=== PATIENT | female | born 1945 | race Hispanic/Latino ===

== ENCOUNTER 2017-11-17 18:07 | Inpatient (IN) | payer MEDICARE ==
[2017-11-17] MEDS ORDERED: NACL 0.9% 250ML 250 ML IV ONE (20:27)
--- NOTE | 2017-11-17 20:28 | Emergency Department Report ---
ED Shortness of Breath HPI - General Chief Complaint: Dyspnea/Respdistress Stated Complaint: BREATHING DIFFICULTY, TACH Time Seen by Provider: 11/17/17 20:12 Source: patient, RN notes reviewed, old records reviewed Mode of arrival: Wheelchair Limitations: No Limitations - History of Present Illness Initial Comments: This is a 72-year-old female, and the patient is previously unknown to me. Primary care Dr.: Dr Blackwell Cardiology: Dr. Albino Zuniga Pulmonology: Dr. Sobeida Garcia; [phone] Past medical history includes rheumatoid arthritis, chronic lung disease, suspected secondary to rheumatoid arthritis, high cholesterol, supposed to be home oxygen dependent, patient reports that she is poorly compliant with her home oxygen this is a 72-year-old female, the patient is previously unknown to this provider, she presents to the ER with a complaint of painless shortness of breath. It has been present for 2-3 months. It does not radiate anywhere, it worsens with physical exertion, and it decreases with rest. There is no chest pain, there is no abdominal pain, there is no hematemesis or bright red blood per rectum, the patient denies irritative, obstructive urinary symptoms, she has chronic cough which is not a new, worsening or different, she is not wheezing. Her primary care [facility] in for further evaluation. She has no pulmonary embolus or DVT risk factors by history, denies leg pain, leg swelling, recent hospital admissions, recent hospitalizations, or surgeries. She reports chronic two-pillow orthopnea which is not a new, worsening or different. MD Complaint: shortness of breath -: Gradual, month(s) Severity: moderate Consistency: intermittent Improves With: oxygen, rest Worsens With: lying flat, exertion Known History Of: COPD, other Treatments Prior to Arrival: oxygen - Related Data Home Oxygen Therapy: Yes Home Oxygen Amount: 2 Liters Home Medications Medication Instructions Recorded Confirmed Last Taken Amlodipine Besylate/Benazepril 42 mg PO QAM 08/07/15 11/17/17 11/17/17 [amLODIPine-Benazepril 10/40 mg] AtorvaSTATin [Lipitor] 40 mg PO QDAY 08/07/15 11/17/17 11/17/17 Levothyroxine [Synthroid] 112 mcg PO QAM 08/07/15 11/17/17 11/17/17 Methotrexate Sodium/Pf 25 mg PO 1XW 08/07/15 11/17/17 11/17/17 [Methotrexate 50 mg/2 ml Vial] Prednisone [predniSONE] 5 mg PO QDAY 08/07/15 11/17/17 11/17/17 ALBUTEROL Inhaler [Proair] 2 puff IH QID PRN 11/17/17 11/17/17 11/17/17 Benazepril HCl 40 mg PO DAILY 11/17/17 11/17/17 11/17/17 Betamethasone Dipropionate 1 applicatio TP BID 11/17/17 11/17/17 11/17/17 [Betamethasone Dipropionate 0.05% Cream] Calcium Carbonate/Vitamin D3 1 each PO BID 11/17/17 11/17/17 11/17/17 [Calcium 500-Vit D3 600 Tablet] Famotidine [Pepcid] 20 mg PO DAILY 11/17/17 11/17/17 11/17/17 Folic Acid 20 mg PO QDAY 11/17/17 11/17/17 11/17/17 Gabapentin [Neurontin] 300 mg PO Q8HR 11/17/17 11/17/17 11/17/17 Mv-Mn/Folic Acid/Calcium/Vit K 1 each PO DAILY 11/17/17 11/17/17 11/17/17 [Women's 50 Plus Daily Formula] Pramipexole [Mirapex] 0.125 mg PO QPM 11/17/17 11/17/17 11/17/17 Latanoprost 0.005% [Xalatan 0.005%] 1 drops HS 11/18/17 11/18/17 11/17/17 cycloSPORINE [Restasis] 1 drop 11/18/17 11/18/17 15:16 Previous Rx's Medication Instructions Recorded Last Taken Type ALBUTEROL Inhaler [ProAir HFA 2 puff IH QID PRN #1 inhalation 08/07/15 11/17/17 Rx Inhaler] Allergies Allergy/AdvReac Type Severity Reaction Status Date / Time No Known Allergies Allergy Verified 11/18/17 00:55 ED Review of Systems ROS: Stated complaint: BREATHING DIFFICULTY, TACH Other details as noted in HPI Constitutional: malaise. denies: fever Eyes: denies: eye discharge Respiratory: shortness of breath Cardiovascular: dyspnea on exertion. denies: chest pain Gastrointestinal: denies: vomiting Genitourinary: as per HPI Musculoskeletal: as per HPI Skin: as per HPI Neurological: as per HPI, weakness Psychiatric: as per HPI ED Past Medical Hx - Past Medical History Previous Medical History?: Yes Hx Hypertension: Yes Hx Arthritis: Yes Additional medical history: interstitial lung disease. Thyroid disease. Lipidemia. PAD. sleep apnea - Surgical History Past Surgical History?: No - Social History Smoking Status: Former Smoker Substance Use Type: None - Medications Home Medications: Home Medications Medication Instructions Recorded Confirmed Last Taken Type ALBUTEROL Inhaler [ProAir HFA 2 puff IH QID PRN #1 inhalation 08/07/15 11/17/17 11/17/17 Rx Inhaler] Amlodipine Besylate/Benazepril 42 mg PO QAM 08/07/15 11/17/17 11/17/17 History [amLODIPine-Benazepril 10/40 mg] AtorvaSTATin [Lipitor] 40 mg PO QDAY 08/07/15 11/17/17 11/17/17 History Levothyroxine [Synthroid] 112 mcg PO QAM 08/07/15 11/17/17 11/17/17 History Methotrexate Sodium/Pf 25 mg PO 1XW 08/07/15 11/17/17 11/17/17 History [Methotrexate 50 mg/2 ml Vial] Prednisone [predniSONE] 5 mg PO QDAY 08/07/15 11/17/17 11/17/17 History ALBUTEROL Inhaler [Proair] 2 puff IH QID PRN 11/17/17 11/17/17 11/17/17 History Benazepril HCl 40 mg PO DAILY 11/17/17 11/17/17 11/17/17 History Betamethasone Dipropionate 1 applicatio TP BID 11/17/17 11/17/17 11/17/17 History [Betamethasone Dipropionate 0.05% Cream] Calcium Carbonate/Vitamin D3 1 each PO BID 11/17/17 11/17/17 11/17/17 History [Calcium 500-Vit D3 600 Tablet] Famotidine [Pepcid] 20 mg PO DAILY 11/17/17 11/17/17 11/17/17 History Folic Acid 20 mg PO QDAY 01/06/2711/17/17 11/17/17 History Gabapentin [Neurontin] 300 mg PO Q8HR 11/17/17 11/17/17 11/17/17 History Mv-Mn/Folic Acid/Calcium/Vit K 1 each PO DAILY 11/17/17 11/17/17 11/17/17 History [Women's 50 Plus Daily Formula] Pramipexole [Mirapex] 0.125 mg PO QPM 11/17/17 11/17/17 11/17/17 History Latanoprost 0.005% [Xalatan 0.005%] 1 drops HS 11/18/17 11/18/17 11/17/17 History cycloSPORINE [Restasis] 1 drop 11/18/17 11/18/17 15:16 History ED Physical Exam - General Limitations: No Limitations General appearance: alert, in no apparent distress - Head Head exam: Present: atraumatic, normocephalic - Eye Eye exam: Present: normal appearance, EOMI. Absent: nystagmus - ENT ENT exam: Present: normal exam, normal orophraynx, mucous membranes moist - Neck Neck exam: Present: normal inspection, full ROM - Respiratory Respiratory exam: Present: decreased breath sounds. Absent: respiratory distress, wheezes, rales, rhonchi, stridor - Cardiovascular Cardiovascular Exam: Present: normal rhythm, tachycardia, normal heart sounds. Absent: systolic murmur, diastolic murmur, rubs, gallop - GI/Abdominal GI/Abdominal exam: Present: soft, normal bowel sounds. Absent: distended, tenderness, guarding, rebound, rigid, pulsatile mass - Extremities Exam Extremities exam: Present: normal inspection, full ROM, normal capillary refill. Absent: tenderness, pedal edema, joint swelling, calf tenderness - Back Exam Back exam: Present: normal inspection, full ROM. Absent: tenderness, CVA tenderness (R), paraspinal tenderness, vertebral tenderness - Neurological Exam Neurological exam: Present: alert, oriented X3, CN II-XII intact, other ( Extraocular movements intact. Tongue midline. No facial droop. Facial sensation intact to light touch in the V1, V2, V3 distribution bilaterally. 5 and 5 strength in 4 extremities.. Sensation is intact to light touch in 4 extremities.). Absent: motor sensory deficit - Psychiatric Psychiatric exam: Present: normal affect, normal mood - Skin Skin exam: Present: warm, dry, intact, normal color. Absent: rash ED Course Vital Signs 11/17/17 11/17/17 18:33 22:00 Temperature 97.5 F L 98.3 F Pulse Rate 118 H 98 H Respiratory 22 20 Rate Blood Pressure 167/76 Blood Pressure 139/71 [Left] O2 Sat by Pulse 81 L 95 Oximetry - Reevaluation(s) Reevaluation #1: 11/17/17 22:24 Differential diagnosis, including but not limited to: Chronic interstitial lung disease, rheumatoid lung disease, pulmonary hypertension, pulmonary embolus, pneumonia Assessment and plan: 72-year-old female with a suspected history of interstitial lung disease, rheumatoid lung disease, COPD who is poorly compliant with home oxygen. She has no pulmonary embolus or DVT risk factors and is low risk by well's criteria clinically, and she clinically does not appear to be acutely decompensated. Initial vital signs are reviewed and appreciated, however currently the patient is not hypoxic on submental oxygen she is not tachycardic, she does not have wheezes, rales, rhonchi, she does not have significant lower extremity edema or JVD, and does not appear to be in acute distress. Furthermore, she has no chest pain, and reports that her symptoms have been present for months, and by her own history reports that her symptoms are not dramatically worsened or different. I highly suspect that the patient is experiencing a natural expected progression of her underlying chronic medical lung disease. Her EKG is morphologically abnormal, troponin negative 1, repeat troponin is pending, d-dimer was markedly elevated, CT scan of the chest with IV contrast will be obtained. I discussed her case with covering cardiology, Dr. Kim, who indicated that his office would be happy to see the patient is a follow-up later on this week for further outpatient evaluation. I have also contacted her covering director of digital technology, Dr. Baker at [place], who indicated that his office would also be happy to have the patient follow-up with her on this week. Tachycardia resolved, patient having no pain at this time, CT scan of the chest is pending. Reevaluation #2: 11/18/17 00:48 Received call from radiology. CT scan demonstrates multiple pulmonary emboli. No evidence of saddle embolus. Lovenox is ordered. Hospital physician, Dr. Snow accepts the patient to the medical service. Given duration of symptoms, hemodynamic stability, I don't believe patient requires emergent vascular surgery consult at 1248 in the morning, and I will defer to the inpatient team for further management. ED Medical Decision Making - Lab Data Result diagrams: 11/17/17 20:21 11/17/17 20:21 Vital Signs 11/17/17 11/17/17 18:33 22:00 Temperature 97.5 F L 98.3 F Pulse Rate 118 H 98 H Respiratory 22 20 Rate Blood Pressure 167/76 Blood Pressure 139/71 [Left] O2 Sat by Pulse 81 L 95 Oximetry Lab Results 11/17/17 11/17/17 11/17/17 Range/Units 20:21 20:21 20:21 WBC 13.5 H (4.5-11.0) K/mm3 RBC 5.22 H (3.65-5.03) M/mm3 Hgb 16.1 H (10.1-14.3) gm/dl Hct 50.5 H (30.3-42.9) % MCV 97 (79-97) fl MCH 31 (28-32) pg MCHC 32 (30-34) % RDW 16.9 H (13.2-15.2) % Plt Count 260 (140-440) K/mm3 Lymph % (Auto) 9.0 L (13.4-35.0) % [place] % (Auto) 7.3 (0.0-7.3) % Eos % (Auto) 3.0 (0.0-4.3) % Baso % (Auto) 0.4 (0.0-1.8) % Lymph # 1.2 (1.2-5.4) K/mm3 [place] # 1.0 H (0.0-0.8) K/mm3 Eos # 0.4 (0.0-0.4) K/mm3 Baso # 0.1 (0.0-0.1) K/mm3 Seg Neutrophils % 80.3 H (40.0-70.0) % Seg Neutrophils # 10.8 H (1.8-7.7) K/mm3 PT 13.8 (12.2-14.9) Sec. INR 1.01 (0.87-1.13) APTT 24.5 (24.2-36.6) Sec. D-Dimer > 33296 H (0-234) ng/mlDDU Sodium 141 (137-145) mmol/L Potassium 4.8 (3.6-5.0) mmol/L Chloride 103.0 (98-107) mmol/L Carbon Dioxide 22 (22-30) mmol/L Anion Gap 21 mmol/L BUN 15 (7-17) mg/dL Creatinine 0.8 (0.7-1.2) mg/dL Estimated GFR > 60 ml/min BUN/Creatinine Ratio 19 % Glucose 103 H (65-100) mg/dL Calcium 9.2 (8.4-10.2) mg/dL Magnesium 2.00 (1.7-2.3) mg/dL Total Bilirubin 0.60 (0.1-1.2) mg/dL AST 30 (5-40) units/L ALT 28 (7-56) units/L Alkaline Phosphatase 89 (35-129) units/L Troponin T < 0.010 (0.00-0.029) ng/mL NT-Pro-B Natriuret Pep 347.7 (0-900) pg/mL Total Protein 7.4 (6.3-8.2) g/dL Albumin 3.5 L (3.9-5) g/dL Albumin/Globulin Ratio 0.9 % TSH (0.270-4.200) mlU/mL Free T4 (0.76-1.46) ng/dL 11/17/17 11/17/17 Range/Units 20:21 20:21 WBC (4.5-11.0) K/mm3 RBC (3.65-5.03) M/mm3 Hgb (10.1-14.3) gm/dl Hct (30.3-42.9) % MCV (79-97) fl MCH (28-32) pg MCHC (30-34) % RDW (13.2-15.2) % Plt Count (140-440) K/mm3 Lymph % (Auto) (13.4-35.0) % [place] % (Auto) (0.0-7.3) % Eos % (Auto) (0.0-4.3) % Baso % (Auto) (0.0-1.8) % Lymph # (1.2-5.4) K/mm3 [place] # (0.0-0.8) K/mm3 Eos # (0.0-0.4) K/mm3 Baso # (0.0-0.1) K/mm3 Seg Neutrophils % (40.0-70.0) % Seg Neutrophils # (1.8-7.7) K/mm3 PT (12.2-14.9) Sec. INR (0.87-1.13) APTT (24.2-36.6) Sec. D-Dimer (0-234) ng/mlDDU Sodium (137-145) mmol/L Potassium (3.6-5.0) mmol/L Chloride (98-107) mmol/L Carbon Dioxide (22-30) mmol/L Anion Gap mmol/L BUN (7-17) mg/dL Creatinine (0.7-1.2) mg/dL Estimated GFR ml/min BUN/Creatinine Ratio % Glucose (65-100) mg/dL Calcium (8.4-10.2) mg/dL Magnesium (1.7-2.3) mg/dL Total Bilirubin (0.1-1.2) mg/dL AST (5-40) units/L ALT (7-56) units/L Alkaline Phosphatase (35-129) units/L Troponin T (0.00-0.029) ng/mL NT-Pro-B Natriuret Pep (0-900) pg/mL Total Protein (6.3-8.2) g/dL Albumin (3.9-5) g/dL Albumin/Globulin Ratio % TSH 3.460 (0.270-4.200) mlU/mL Free T4 1.52 H (0.76-1.46) ng/dL - EKG Data -: EKG Interpreted by Me - EKG Data 11/17/17 22:27 Sinus tachycardia, 108 bpm, left axis deviation, QTC prolonged, T-wave inversion in lead 3, abnormal EKG, not morphologically consistent with ST elevation myocardial infarction EKG #2 is grossly unchanged there is motion artifact, nonspecific changes with appeared to prior EKG from 2015. - Radiology Data Radiology results: image reviewed interpreted by me: X-ray of the chest, interpreted by me: Chronic pulmonary lung disease, chronic interstitial lung disease, chronic bibasilar atelectasis versus infiltrate; of note clinical history does not corroborate or suggest pneumonia Critical care attestation.: If time is entered above; I have spent that time in minutes in the direct care of this critically ill patient, excluding procedure time. ED Disposition Clinical Impression: Pulmonary emboli Disposition: OP ADMIT IP TO THIS HOSP Is pt being admited?: Yes Condition: Good
[2017-11-17 20:40] LABS: Basophils # (Auto) 0.1 K/mm3 (0.0-0.1); Basophils % (Auto) 0.4 % (0.0-1.8); Eosinophils # (Auto) 0.4 K/mm3 (0.0-0.4); Hematocrit 50.5 % (30.3-42.9); Hemoglobin 16.1 gm/dl (10.1-14.3); Lymphocytes # (Auto) 1.2 K/mm3 (1.2-5.4); Mean Corpuscular HGB Conc 32 % (30-34); Mean Corpuscular Hemoglobin 31 pg (28-32); Mean Corpuscular Volume 97 fl (79-97); Monocytes % (Auto) 7.3 % (0.0-7.3); Red Blood Count 5.22 M/mm3 (3.65-5.03); Red Cell Distribution Width 16.9 % (13.2-15.2)
[2017-11-17 20:48] LABS: INR 1.01 (0.87-1.13)
[2017-11-17 20:49] LABS: Partial Thromboplastin Time 24.5 Sec. (24.2-36.6)
[2017-11-17 20:52] LABS: Platelet Count 260 K/mm3 (140-440)
[2017-11-17 20:58] LABS: Alanine Aminotransferase 28 units/L (7-56); Albumin 3.5 g/dL (3.9-5); BUN/Creatinine Ratio 19; Blood Urea Nitrogen 15 mg/dL (7-17); Calcium 9.2 mg/dL (8.4-10.2); Hemolysis Index 14
--- NOTE | 2017-11-17 22:58 | XRay Report ---
FINAL REPORT EXAM: XR CHEST ROUTINE 2V HISTORY: Dyspnea TECHNIQUE: 2 views of the chest. PRIORS: None. FINDINGS: The cardiomediastinal silhouette appears normal. The bilateral interstitial markings are diffusely prominent especially peripherally. There is no evidence of pleural effusion. The bones are diffusely demineralized. IMPRESSION: Findings are most consistent with chronic interstitial lung disease
[2017-11-18] MEDS ORDERED: LOVENOX SUB-Q STA (00:47)
--- NOTE | 2017-11-18 00:52 | Cat Scan Report ---
FINAL REPORT EXAM: CT ANGIO CHEST HISTORY: sob TECHNIQUE: High-resolution helical axial images were obtained of the chest during intravenous administration of iodinated contrast. Images are reconstructed in the sagittal and coronal planes. PRIORS: None. FINDINGS: There pulmonary arterial filling defects in the distal main right pulmonary artery and in arterial branch to the right upper lobe and in several segmental and subsegmental branches. There is a large amount of thrombus in the main artery to the right middle lobe. There are multiple filling defects in right lower lobe segmental and subsegmental arteries. On the left there is PE present in a left upper lobe segmental and associated subsegmental branches, in the lingular branch and in several left lower lobe segmental and subsegmental branches. There is coronary artery atherosclerotic calcification. Heart is mildly enlarged. There is diffuse bilateral subpleural fibrosis and honeycombing consistent with chronic interstitial lung disease and pulmonary fibrosis. There is pleural effusion. There is a small hiatal hernia. Otherwise, images through the upper abdomen are unremarkable. The bones are unremarkable. IMPRESSION: 1. There is a large amount of bilateral PE 2. Chronic interstitial lung disease and pulmonary fibrosis 3. Mild cardiomegaly 4. Coronary artery disease I gave a verbal report by phone to Dr. Davis at 12:42 a.m. eastern standard time.
[2017-11-18] MEDS ORDERED: NACL 0.9% 1000 ML 1,000 ML ONE (00:54)
[2017-11-18] MEDS ORDERED: LOVENOX SUB-Q ONE (00:54)
[2017-11-18] MEDS ORDERED: PROAIR IH PRN (04:41)
[2017-11-18] MEDS ORDERED: METHOTREXATE SODIUM 25 MG PO SCH (04:45)
--- NOTE | 2017-11-18 04:51 | History and Physical Report ---
History of Present Illness Date of examination: 11/18/17 Date of admission: 11/18/17 00:54 Chief complaint: Shortness of breath History of present illness: 72-year-old female with past medical history significant for interstitial lung disease, rheumatoid arthritis, fibromyalgia, glaucoma, sleep apnean presented to the emergency department complaining of shortness of breath , hyperventilating, and dry mouth for the last 2-3 months. Patient has been using oxygen and non compliant. Patient denies chest pain, fever, chills, palpitation, dizziness at current presentation. Patient said she has history of CAD and has been followed by Dr Mojgan Patterson in the office. Has been followed by pulmonary and family caseworker at [place]. In the ED and CTA was done shows large bilateral PE. Past History Past Medical History: CAD, other (RA, fibromyalgia, glaucoma, sleep apnea) Past Surgical History: No surgical history Social history: full code. denies: smoking, alcohol abuse, prescription drug abuse, IV drug use Family history: no significant family history Medications and Allergies Allergies Allergy/AdvReac Type Severity Reaction Status Date / Time No Known Allergies Allergy Verified 11/18/17 00:55 Home Medications Medication Instructions Recorded Confirmed Last Taken Type ALBUTEROL Inhaler [ProAir HFA 2 puff IH QID PRN #1 inhalation 08/07/15 11/17/17 11/17/17 Rx Inhaler] Amlodipine Besylate/Benazepril 42 mg PO QAM 08/07/15 11/17/17 11/17/17 History [amLODIPine-Benazepril 10/40 mg] AtorvaSTATin [Lipitor] 40 mg PO QDAY 08/07/15 11/17/17 11/17/17 History Levothyroxine [Synthroid] 112 mcg PO QAM 08/07/15 11/17/17 11/17/17 History Methotrexate Sodium/Pf 25 mg PO 1XW 08/07/15 11/17/17 11/17/17 History [Methotrexate 50 mg/2 ml Vial] Prednisone [predniSONE] 5 mg PO QDAY 08/07/15 11/17/17 11/17/17 History ALBUTEROL Inhaler [Proair] 2 puff IH QID PRN 11/17/17 11/17/17 11/17/17 History Benazepril HCl 40 mg PO DAILY 11/17/17 11/17/1718 History Betamethasone Dipropionate 1 applicatio TP BID 11/17/17 11/17/17 11/17/17 History [Betamethasone Dipropionate 0.05% Cream] Calcium Carbonate/Vitamin D3 1 each PO BID 11/17/17 11/17/17 11/17/17 History [Calcium 500-Vit D3 600 Tablet] Famotidine [Pepcid] 20 mg PO DAILY 11/17/17 11/17/17 11/17/17 History Folic Acid 20 mg PO QDAY 11/17/17 11/17/17 11/17/17 History Gabapentin [Neurontin] 300 mg PO Q8HR 11/17/17 11/17/17 11/17/17 History Mv-Mn/Folic Acid/Calcium/Vit K 1 each PO DAILY 11/17/17 11/17/17 11/17/17 History [Women's 50 Plus Daily Formula] Pramipexole [Mirapex] 0.125 mg PO QPM 11/17/17 11/17/17 11/17/17 History Active Meds: Active Medications Albuterol (Proair) 2 puff IH QID PRN PRN Reason: Shortness Of Breath Albuterol/Ipratropium (Duoneb *Not For Prn Use*) 1 ampul IH Q4HRT [place] Atorvastatin Calcium (Lipitor) 40 mg PO QDAY [place] Enoxaparin Sodium (Lovenox) 120 mg 1 mg/kg (120 mg) SUB-Q Q12H [place] Famotidine (Pepcid) 20 mg PO DAILY [place] Gabapentin (Neurontin) 300 mg PO Q8HR [place] Levothyroxine Sodium (Synthroid) 112 mcg PO QAM [place] Miscellaneous Medication (Amlodipine Besylate/Benazepril [Amlodipine-Benazepril 10/40 Mg]) 42 mg PO QAM [place] Miscellaneous Medication (Benazepril Hcl [Benazepril Hcl]) 40 mg PO DAILY [place] Miscellaneous Medication (Betamethasone Dipropionate [Betamethasone Dipropionate 0.05% Cream]) 1 applicatio TP BID [place] Miscellaneous Medication (Calcium Carbonate/Vitamin D3 [Calcium 500-Vit D3 600 Tablet]) 1 each PO BID [place] Miscellaneous Medication (Methotrexate Sodium/Pf [Methotrexate 50 Mg/2 Ml Vial] ) 25 mg PO 1XW [place] Miscellaneous Medication (Prednisone [Prednisone]) 5 mg PO QDAY [place] Pramipexole Dihydrochloride (Mirapex) 0.125 mg PO QPM [place] Exam - Physical Exam Narrative exam: Not in cardiopulmonary distress. The patient is morbidly obese. Vital signs as documented. Head exam is unremarkable. No scleral icterus . Neck is without jugular venous distension, thyromegaly, or carotid bruits. Lungs are clear to auscultation. Cardiac exam reveals regular rate and Rhythm. First and second heart sounds normal. No murmurs, rubs or gallops. Abdominal exam reveals normal bowel sounds, no masses, no organomegaly and no aortic enlargement. Extremities are nonedematous and both femoral and pedal pulses are normal. POOL MANAGER: Alert and oriented 3. No focal weakness. - Constitutional Vitals: Temp Pulse Resp BP Pulse Ox 97.4 F L 96 H 20 128/58 95 11/18/17 03:49 11/18/17 03:49 11/18/17 03:49 11/18/17 03:49 11/17/17 22:00 Results - Labs CBC & Chem 7: 11/17/17 20:21 11/17/17 20:21 Labs: Laboratory Last Values WBC 13.5 K/mm3 (4.5-11.0) H 11/17/17 20:21 RBC 5.22 M/mm3 (3.65-5.03) H 11/17/17 20:21 Hgb 16.1 gm/dl (10.1-14.3) H 11/17/17 20:21 Hct 50.5 % (30.3-42.9) H 11/17/17 20:21 MCV 97 fl (79-97) 11/17/17 20:21 MCH 31 pg (28-32) 11/17/17 20:21 MCHC 32 % (30-34) 11/17/17 20:21 RDW 16.9 % (13.2-15.2) H 11/17/17 20:21 Plt Count 260 K/mm3 (140-440) 11/17/17 20:21 Lymph % (Auto) 9.0 % (13.4-35.0) L 11/17/17 20:21 [place] % (Auto) 7.3 % (0.0-7.3) 11/17/17 20:21 Eos % (Auto) 3.0 % (0.0-4.3) 11/17/17 20:21 Baso % (Auto) 0.4 % (0.0-1.8) 11/17/17 20:21 Lymph # 1.2 K/mm3 (1.2-5.4) 11/17/17 20:21 [place] # 1.0 K/mm3 (0.0-0.8) H 11/17/17 20:21 Eos # 0.4 K/mm3 (0.0-0.4) 11/17/17 20:21 Baso # 0.1 K/mm3 (0.0-0.1) 11/17/17 20:21 Seg Neutrophils % 80.3 % (40.0-70.0) H 11/17/17 20:21 Seg Neutrophils # 10.8 K/mm3 (1.8-7.7) H 11/17/17 20:21 PT 13.8 Sec. (12.2-14.9) 11/17/17 20:21 INR 1.01 (0.87-1.13) 11/17/17 20:21 APTT 24.5 Sec. (24.2-36.6) 11/17/17 20:21 D-Dimer > 87844 ng/mlDDU (0-234) H 11/17/17 20:21 Sodium 141 mmol/L (137-145) 11/17/17 20:21 Potassium 4.8 mmol/L (3.6-5.0) 11/17/17 20:21 Chloride 103.0 mmol/L (98-107) 11/17/17 20:21 Carbon Dioxide 22 mmol/L (22-30) 11/17/17 20:21 Anion Gap 21 mmol/L 11/17/17 20:21 BUN 15 mg/dL (7-17) 11/17/17 20:21 Creatinine 0.8 mg/dL (0.7-1.2) 11/17/17 20:21 Estimated GFR > 60 ml/min 11/17/17 20:21 BUN/Creatinine Ratio 19 % 11/17/17 20:21 Glucose 103 mg/dL (65-100) H 11/17/17 20:21 Calcium 9.2 mg/dL (8.4-10.2) 11/17/17 20:21 Magnesium 2.00 mg/dL (1.7-2.3) 11/17/17 20:21 Total Bilirubin 0.60 mg/dL (0.1-1.2) 11/17/17 20:21 AST 30 units/L (5-40) 11/17/17 20:21 ALT 28 units/L (7-56) 11/17/17 20:21 Alkaline Phosphatase 89 units/L (35-129) 11/17/17 20:21 Troponin T < 0.010 ng/mL (0.00-0.029) 11/17/17 22:55 NT-Pro-B Natriuret Pep 347.7 pg/mL (0-900) 11/17/17 20:21 Total Protein 7.4 g/dL (6.3-8.2) 11/17/17 20:21 Albumin 3.5 g/dL (3.9-5) L 11/17/17 20:21 Albumin/Globulin Ratio 0.9 % 11/17/17 20:21 TSH 3.460 mlU/mL (0.270-4.200) 11/17/17 20:21 Free T4 1.52 ng/dL (0.76-1.46) H 11/17/17 20:21 - Imaging and Cardiology CT scan - chest: report reviewed (large PE) Assessment and Plan Assessment and plan: 72-year-old female with medical history significant for interstitial lung disease, rheumatoid arthritis, fibromyalgia, glaucoma, sleep apnea presented to the ED complaining of shortness of breath, hyperventilating for the last 2-3 months Large bilateral PE - She is on therapeutic Lovenox - Vascular Surgery consulted Interstitial lung disease Rheumatoid arthritis Sleep apnea CAD - continue home meds - Supportive care - Pulmonary consult Disposition - Admit to medical floor Advance Directives: Yes VTE prophylaxis?: Chemical Plan of care discussed with patient/family: Yes
[2017-11-18] MEDS ORDERED: PROVENTIL IH PRN (04:59)
[2017-11-18] MEDS: NEURONTIN PO SCH ×3 (07:44→21:38)
[2017-11-18] MEDS: SYNTHROID PO SCH (07:44)
--- NOTE | 2017-11-18 09:03 | Consultation ---
History of Present Illness - Reason for Consult Consult date: 11/18/17 - History of Present Illness This is a 72 year old female seen in consult for recently discovered PE. She came to the ER yesterday, as advised by a nurse from her stepdown nurse's office. She had been feeling progressively short of breath, and it was beginning to interfere with her daily activities. According to the patient, this shortness of breath and began 2-3 months ago, and has slowly worsened since then. There has not been an acute change in symptoms within the last few days. She sees a stepdown nurse for coronary artery disease and a overhauler helper for interstitial lung disease. She is on home oxygen, 3 L nasal cannula, currently. A CT was performed in the ER which demonstrated the majority of the clot burden to be in the right pulmonary arterial tree, mostly in segmental and subsegmental branches. There is a small amount on the left. There is no central or main pulmonary embolus. Past History Past Medical History: CAD, other (RA, fibromyalgia, glaucoma, sleep apnea) Past Surgical History: No surgical history Social history: full code. denies: smoking, alcohol abuse, prescription drug abuse, IV drug use Family history: no significant family history Medications and Allergies Allergies Allergy/AdvReac Type Severity Reaction Status Date / Time No Known Allergies Allergy Verified 11/18/17 00:55 Home Medications Medication Instructions Recorded Confirmed Last Taken Type ALBUTEROL Inhaler [ProAir HFA 2 puff IH QID PRN #1 inhalation 08/07/15 11/17/17 11/17/17 Rx Inhaler] Amlodipine Besylate/Benazepril 42 mg PO QAM 08/07/15 11/17/17 11/17/17 History [amLODIPine-Benazepril 10/40 mg] AtorvaSTATin [Lipitor] 40 mg PO QDAY 08/07/15 11/17/17 11/17/17 History Levothyroxine [Synthroid] 112 mcg PO QAM 08/07/15 11/17/17 11/17/17 History Methotrexate Sodium/Pf 25 mg PO 1XW 08/07/15 11/17/17 11/17/17 History [Methotrexate 50 mg/2 ml Vial] Prednisone [predniSONE] 5 mg PO QDAY 08/07/15 11/17/17 11/17/17 History ALBUTEROL Inhaler [Proair] 2 puff IH QID PRN 11/17/17 11/17/17 11/17/17 History Benazepril HCl 40 mg PO DAILY 11/17/17 11/17/17 11/17/17 History Betamethasone Dipropionate 1 applicatio TP BID 11/17/17 11/17/17 11/17/17 History [Betamethasone Dipropionate 0.05% Cream] Calcium Carbonate/Vitamin D3 1 each PO BID 11/17/17 11/17/17 11/17/17 History [Calcium 500-Vit D3 600 Tablet] Famotidine [Pepcid] 20 mg PO DAILY 11/17/17 11/17/17 11/17/17 History Folic Acid 20 mg PO QDAY 11/17/17 11/17/17 11/17/17 History Gabapentin [Neurontin] 300 mg PO Q8HR 11/17/17 11/17/17 11/17/17 History Mv-Mn/Folic Acid/Calcium/Vit K 1 each PO DAILY 11/17/17 11/17/17 11/17/17 History [Women's 50 Plus Daily Formula] Pramipexole [Mirapex] 0.125 mg PO QPM 11/17/17 11/17/17 11/17/17 History Active Meds: Active Medications Albuterol (Proventil) 2.5 mg IH Q4HRT PRN PRN Reason: Shortness Of Breath Albuterol/Ipratropium (Duoneb *Not For Prn Use*) 1 ampul IH Q4HRT [facility] Amlodipine Besylate (Norvasc) 10 mg PO DAILY [facility] Atorvastatin Calcium (Lipitor) 40 mg PO QDAY [facility] Betamethasone Dipropionate (Diprosone) 1 applic TP BID [facility] Calcium/Vitamin D (Oysco D 500 Mg-200 Unit) 1 each PO BID [facility] Enoxaparin Sodium (Lovenox) 120 mg 1 mg/kg (120 mg) SUB-Q Q12H [facility] Famotidine (Pepcid) 20 mg PO DAILY [facility] Gabapentin (Neurontin) 300 mg PO Q8HR [facility] Last Admin: 11/18/17 07:44 Dose: 300 mg Levothyroxine Sodium (Synthroid) 112 mcg PO QAM@0600 [facility] Last Admin: 11/18/17 07:44 Dose: 112 mcg Lisinopril (Zestril) 40 mg PO QDAY [facility] Miscellaneous Medication (Methotrexate Sodium/Pf [Methotrexate 50 Mg/2 Ml Vial] ) 25 mg PO 1XW [facility] Pramipexole Dihydrochloride (Mirapex) 0.125 mg PO QPM [facility] Prednisone (Deltasone) 5 mg PO QDAY [facility] Exam - Constitutional Vitals: Temp Pulse Resp BP Pulse Ox 98.1 F 100 H 20 117/57 90 11/18/17 07:46 11/18/17 07:46 11/18/17 07:46 11/18/17 07:46 11/18/17 07:46 General appearance: Present: no acute distress, well-nourished - EENT Eyes: Present: PERRL ENT: hearing intact, clear oral mucosa - Neck Neck: Present: supple, normal ROM - Respiratory Respiratory effort: other (she is taking somewhat shallow breaths, but they do not appear to be particularly labored.) Results - Labs CBC & Chem 7: 11/17/17 20:21 11/17/17 20:21 Labs: Abnormal lab results 11/17/17 11/17/17 11/17/17 Range/Units 20:21 20:21 20:21 WBC 13.5 H (4.5-11.0) K/mm3 RBC 5.22 H (3.65-5.03) M/mm3 Hgb 16.1 H (10.1-14.3) gm/dl Hct 50.5 H (30.3-42.9) % RDW 16.9 H (13.2-15.2) % Lymph % (Auto) 9.0 L (13.4-35.0) % [place] # 1.0 H (0.0-0.8) K/mm3 Seg Neutrophils % 80.3 H (40.0-70.0) % Seg Neutrophils # 10.8 H (1.8-7.7) K/mm3 D-Dimer > 12082 H (0-234) ng/mlDDU Glucose 103 H (65-100) mg/dL Albumin 3.5 L (3.9-5) g/dL Free T4 (0.76-1.46) ng/dL 11/17/17 Range/Units 20:21 WBC (4.5-11.0) K/mm3 RBC (3.65-5.03) M/mm3 Hgb (10.1-14.3) gm/dl Hct (30.3-42.9) % RDW (13.2-15.2) % Lymph % (Auto) (13.4-35.0) % [place] # (0.0-0.8) K/mm3 Seg Neutrophils % (40.0-70.0) % Seg Neutrophils # (1.8-7.7) K/mm3 D-Dimer (0-234) ng/mlDDU Glucose (65-100) mg/dL Albumin (3.9-5) g/dL Free T4 1.52 H (0.76-1.46) ng/dL - Imaging and Cardiology CT scan - chest: report reviewed, image reviewed Assessment and Plan At this point, I do not believe she would benefit from catheter directed thrombolysis. Her clot burden is mostly in the segmental and subsegmental branches, and she is hemodynamically stable overall. She appears comfortable in general and is able to talk in full sentences without labored breathing. Her BNP is 347. It is possible that these clots are chronic, as she said her symptoms began several months ago. However, this would be difficult to distinguish given the superimposed interstitial lung disease. If there is concern that this is an acute clot, anticoagulation can be initiated. A lower extremity venous duplex to evaluate for DVT is also recommended.
[2017-11-18] MEDS ORDERED: PREDNISONE 5 MG PO SCH (10:00)
[2017-11-18] MEDS ORDERED: VITAMIN D3 PO SCH (10:00)
[2017-11-18] MEDS ORDERED: CALCIUM CARBONATE PO SCH (10:00)
[2017-11-18] MEDS ORDERED: LOVENOX SUB-Q SCH (10:00)
[2017-11-18] MEDS ORDERED: NON-FORMULARY (Benazepril Hcl [Benazepril Hcl] 40 MG) PO SCH (10:00)
[2017-11-18] MEDS ORDERED: BENAZEPRIL PO SCH (10:00)
[2017-11-18] MEDS ORDERED: AMLODIPINE BESYLATE PO SCH (10:00)
[2017-11-18] MEDS ORDERED: BETAMETHASONE DIPROPIONATE TP SCH (10:00)
[2017-11-18] MEDS: DUONEB *Not for PRN Use IH SCH ×4 (10:01→20:18)
[2017-11-18] MEDS: NORVASC PO SCH (11:00)
[2017-11-18] MEDS: OYSCO D 500 MG-200 UNIT PO SCH ×2 (12:08→21:38)
[2017-11-18] MEDS: DELTASONE PO SCH (12:08)
[2017-11-18] MEDS: DIPROSONE TP SCH ×2 (12:08→21:39)
[2017-11-18] MEDS: PEPCID PO SCH (12:08)
[2017-11-18] MEDS: LOVENOX SUB-Q SCH (15:19)
[2017-11-18] MEDS: ZESTRIL PO SCH (15:20)
--- NOTE | 2017-11-18 15:57 | Progress Note ---
<ZARIA LORD - Last Filed: 11/18/17 15:57> Assessment and Plan Assessment and plan: 72-year-old female with medical history significant for interstitial lung disease, rheumatoid arthritis, fibromyalgia, glaucoma, sleep apnea presented to the ED complaining of shortness of breath, hyperventilating for the last 2-3 months Large bilateral PE - She is on therapeutic Lovenox - Vascular Surgery following, doesn't recommend catheter directed thrombolysis -Echo ordered Interstitial lung disease Chronic Pulmonary consulted Rheumatoid arthritis Chronic, continue home medications Sleep apnea Uses CPAP at home, pulmonary consulted CAD - continue home meds DVT Venous US showed ACUTE DVT NOTED IN RT. PTV AND LT. SOLEAL VEIN CLOT NOTED TO BE EXTENDING INTO LT PERONEAL VEINS Pt on Lovenox History Interval history: Pt was seen and examined. Complains only of SOB with exertion. Denies CH, TENZIN. Hospitalist Physical - Constitutional Vitals: Temp Pulse Resp BP Pulse Ox 98.2 F 84 20 136/60 87 11/18/17 13:48 11/18/17 13:48 11/18/17 13:48 11/18/17 13:48 11/18/17 13:48 General appearance: Present: no acute distress, well-nourished - EENT Eyes: Present: PERRL, EOM intact ENT: hearing intact, clear oral mucosa, dentition normal - Neck Neck: Present: supple, normal ROM - Respiratory Respiratory effort: normal Respiratory: bilateral: CTA - Cardiovascular Rhythm: regular Heart Sounds: Present: S1 & S2 - Extremities Extremities: no ischemia, No edema Peripheral Pulses: within normal limits - Abdominal General gastrointestinal: soft, non-tender - Integumentary Integumentary: Present: clear, warm, dry - Psychiatric Psychiatric: appropriate mood/affect, cooperative - Neurologic Neurologic: CNII-XII intact, moves all extremities - Allied Health Allied health notes reviewed: nursing Results - Labs CBC & Chem 7: 11/17/17 20:21 11/17/17 20:21 Labs: Laboratory Last Values WBC 13.5 K/mm3 (4.5-11.0) H 11/17/17 20:21 RBC 5.22 M/mm3 (3.65-5.03) H 11/17/17 20:21 Hgb 16.1 gm/dl (10.1-14.3) H 11/17/17 20:21 Hct 50.5 % (30.3-42.9) H 11/17/17 20:21 MCV 97 fl (79-97) 11/17/17 20:21 MCH 31 pg (28-32) 11/17/17 20:21 MCHC 32 % (30-34) 11/17/17 20:21 RDW 16.9 % (13.2-15.2) H 11/17/17 20:21 Plt Count 260 K/mm3 (140-440) 11/17/17 20:21 Lymph % (Auto) 9.0 % (13.4-35.0) L 11/17/17 20:21 [place] % (Auto) 7.3 % (0.0-7.3) 11/17/17 20: Eos % (Auto) 3.0 % (0.0-4.3) 11/17/17 20:21 Baso % (Auto) 0.4 % (0.0-1.8) 11/17/17 20: Lymph # 1.2 K/mm3 (1.2-5.4) 11/17/17 20:21 [place] # 1.0 K/mm3 (0.0-0.8) H 11/17/17 20: Eos # 0.4 K/mm3 (0.0-0.4) 11/17/17 20: Baso # 0.1 K/mm3 (0.0-0.1) 11/17/17 20:21 Seg Neutrophils % 80.3 % (40.0-70.0) H 11/17/17 20: Seg Neutrophils # 10.8 K/mm3 (1.8-7.7) H 11/17/17 20:21 PT 13.8 Sec. (12.2-14.9) 11/17/17 20: INR 1.01 (0.87-1.13) 11/17/17 20: APTT 24.5 Sec. (24.2-36.6) 11/17/17 20:21 D-Dimer > 76934 ng/mlDDU (0-234) H 11/17/17 20:21 Sodium 141 mmol/L (137-145) 11/17/17 20:21 Potassium 4.8 mmol/L (3.6-5.0) 11/17/17 20:21 Chloride 103.0 mmol/L (98-107) 11/17/17 20:21 Carbon Dioxide 22 mmol/L (22-30) 11/17/17 20:21 Anion Gap 21 mmol/L 11/17/17 20:21 BUN 15 mg/dL (7-17) 11/17/17 20:21 Creatinine 0.8 mg/dL (0.7-1.2) 11/17/17 20:21 Estimated GFR > 60 ml/min 11/17/17 20:21 BUN/Creatinine Ratio 19 % 11/17/17 20:21 Glucose 103 mg/dL (65-100) H 11/17/17 20:21 Calcium 9.2 mg/dL (8.4-10.2) 11/17/17 20:21 Magnesium 2.00 mg/dL (1.7-2.3) 11/17/17 20:21 Total Bilirubin 0.60 mg/dL (0.1-1.2) 11/17/17 20:21 AST 30 units/L (5-40) 11/17/17 20:21 ALT 28 units/L (7-56) 11/17/17 20:21 Alkaline Phosphatase 89 units/L (35-129) 11/17/17 20:21 Troponin T < 0.010 ng/mL (0.00-0.029) 11/17/17 22:55 NT-Pro-B Natriuret Pep 347.7 pg/mL (0-900) 11/17/17 20:21 Total Protein 7.4 g/dL (6.3-8.2) 11/17/17 20:21 Albumin 3.5 g/dL (3.9-5) L 11/17/17 20:21 Albumin/Globulin Ratio 0.9 % 11/17/17 20:21 TSH 3.460 mlU/mL (0.270-4.200) 11/17/17 20:21 Free T4 1.52 ng/dL (0.76-1.46) H 11/17/17 20:21 <JERRY YAP M - Last Filed: 11/19/17 17:21> Hospitalist Physical - Constitutional Vitals: Temp Pulse Resp BP Pulse Ox 97.3 F L 80 20 134/58 93 11/19/17 13:44 11/19/17 16:22 11/19/17 16:22 11/19/17 13:44 11/19/17 14:30 Results - Labs CBC & Chem 7: 11/17/17 20:21 11/19/17 11:00 Labs: Laboratory Last Values WBC 13.5 K/mm3 (4.5-11.0) H 11/17/17 20:21 RBC 5.22 M/mm3 (3.65-5.03) H 11/17/17 20:21 Hgb 16.1 gm/dl (10.1-14.3) H 11/17/17 20:21 Hct 50.5 % (30.3-42.9) H 11/17/17 20:21 MCV 97 fl (79-97) 11/17/17 20:21 MCH 31 pg (28-32) 11/17/17 20:21 MCHC 32 % (30-34) 11/17/17 20:21 RDW 16.9 % (13.2-15.2) H 11/17/17 20:21 Plt Count 260 K/mm3 (140-440) 11/17/17 20:21 Lymph % (Auto) 9.0 % (13.4-35.0) L 11/17/17 20:21 [place] % (Auto) 7.3 % (0.0-7.3) 11/17/17 20:21 Eos % (Auto) 3.0 % (0.0-4.3) 11/17/17 20:21 Baso % (Auto) 0.4 % (0.0-1.8) 11/17/17 20:21 Lymph # 1.2 K/mm3 (1.2-5.4) 11/17/17 20:21 [place] # 1.0 K/mm3 (0.0-0.8) H 11/17/17 20:21 Eos # 0.4 K/mm3 (0.0-0.4) 11/17/17 20:21 Baso # 0.1 K/mm3 (0.0-0.1) 11/17/17 20:21 Seg Neutrophils % 80.3 % (40.0-70.0) H 11/17/17 20:21 Seg Neutrophils # 10.8 K/mm3 (1.8-7.7) H 11/17/17 20:21 PT 13.8 Sec. (12.2-14.9) 11/17/17 20:21 INR 1.01 (0.87-1.13) 11/17/17 20:21 APTT 24.5 Sec. (24.2-36.6) 11/17/17 20:21 D-Dimer > 42893 ng/mlDDU (0-234) H 11/17/17 20:21 Sodium 138 mmol/L (137-145) 11/19/17 11:00 Potassium 4.4 mmol/L (3.6-5.0) 11/19/17 11:00 Chloride 102.0 mmol/L (98-107) 11/19/17 11:00 Carbon Dioxide 19 mmol/L (22-30) L 11/19/17 11:00 Anion Gap 21 mmol/L 11/19/17 11:00 BUN 8 mg/dL (7-17) 11/19/17 11:00 Creatinine 0.8 mg/dL (0.7-1.2) 11/19/17 11:00 Estimated GFR > 60 ml/min 11/19/17 11:00 BUN/Creatinine Ratio 10 % 11/19/17 11:00 Glucose 193 mg/dL (65-100) H 11/19/17 11:00 Calcium 8.7 mg/dL (8.4-10.2) 11/19/17 11:00 Magnesium 2.00 mg/dL (1.7-2.3) 11/17/17 20:21 Total Bilirubin 0.60 mg/dL (0.1-1.2) 11/17/17 20:21 AST 30 units/L (5-40) 11/17/17 20:21 ALT 28 units/L (7-56) 11/17/17 20:21 Alkaline Phosphatase 89 units/L (35-129) 11/17/17 20:21 Troponin T < 0.010 ng/mL (0.00-0.029) 11/17/17 22:55 NT-Pro-B Natriuret Pep 347.7 pg/mL (0-900) 11/17/17 20:21 Total Protein 7.4 g/dL (6.3-8.2) 11/17/17 20:21 Albumin 3.5 g/dL (3.9-5) L 11/17/17 20:21 Albumin/Globulin Ratio 0.9 % 11/17/17 20:21 TSH 3.460 mlU/mL (0.270-4.200) 11/17/17 20:21 Free T4 1.52 ng/dL (0.76-1.46) H 11/17/17 20:21 Thyroxine (T4) 10.0 ug/dL (4.0-12.0) 11/19/17 11:00
[2017-11-18] MEDS: MIRAPEX PO SCH (17:50)
--- NOTE | 2017-11-18 17:54 | Consultation ---
History of Present Illness Consult date: 11/18/17 Reason for consult: other (ILD) History of present illness: Called to evaluate case of a 72-year-old female, with prior history of rheumatoid disease follow-up at [place]. She presents with progressive shortness of breath, dyspnea on exertion of many weeks onset. She denies fevers chills or hemoptysis. She had been feeling progressively weak Sometimes with pressure on her chest. The recent surgery or long distance travel. The patient reports that she's been followed for ILD secondary to rheumatoid arthritis at [place] with Dr. Villanueva". She tried to contact them during this period of time. Was unable to do so. She had also been told to use oxygen for the past year but she had been avoiding to do so. Uses oxygen with CPAP for sleep apnea and nighttime. Has been occurring methotrexate treatment for years. Denies any history of pulmonary hypertension or prior pulmonary embolism/DVT. No history of tea preparation, medications for weight loss treatment in the past. No family history of pulmonary hypertension Diagnostic evoluation performed on admission here showed evidence of DVT on bilateral lower extremity venous Doppler. CTA showing bilateral pulmonary embolism, reportedly extensive. She can additional diagnostic findings with evidence of interstitial lung disease.My review of the scan shows significant septal thickening, subpleural fibrosis with honeycombing and traction bronchiectasis. UIP-like pattern in the context of rheumatoid disease. Echocardiogram showed evidence of left ventricle diastolic dysfunction and pulmonary hypertension with pressures at 72 mmHg. Past History Past Medical History: CAD, other (RA, fibromyalgia, glaucoma, sleep apnea) Past Surgical History: No surgical history Social history: full code. denies: smoking, alcohol abuse, prescription drug abuse, IV drug use Family history: no significant family history Medications and Allergies Allergies Allergy/AdvReac Type Severity Reaction Status Date / Time No Known Allergies Allergy Verified 11/18/17 00:55 Home Medications Medication Instructions Recorded Confirmed Last Taken Type ALBUTEROL Inhaler [ProAir HFA 2 puff IH QID PRN #1 inhalation 08/07/15 11/17/17 11/17/17 Rx Inhaler] Amlodipine Besylate/Benazepril 42 mg PO QAM 08/07/15 11/17/17 11/17/17 History [amLODIPine-Benazepril 10/40 mg] AtorvaSTATin [Lipitor] 40 mg PO QDAY 08/07/15 11/17/1718 History Levothyroxine [Synthroid] 112 mcg PO QAM 08/07/15 11/17/17 11/17/17 History Methotrexate Sodium/Pf 25 mg PO 1XW 08/07/15 11/17/17 11/17/17 History [Methotrexate 50 mg/2 ml Vial] Prednisone [predniSONE] 5 mg PO QDAY 08/07/15 11/17/17 11/17/17 History ALBUTEROL Inhaler [Proair] 2 puff IH QID PRN 11/17/17 11/17/17 11/17/17 History Benazepril HCl 40 mg PO DAILY 11/17/17 11/17/17 11/17/17 History Betamethasone Dipropionate 1 applicatio TP BID 11/17/17 11/17/17 11/17/17 History [Betamethasone Dipropionate 0.05% Cream] Calcium Carbonate/Vitamin D3 1 each PO BID 11/17/17 11/17/17 11/17/17 History [Calcium 500-Vit D3 600 Tablet] Famotidine [Pepcid] 20 mg PO DAILY 11/17/17 11/17/17 11/17/17 History Folic Acid 20 mg PO QDAY 11/17/17 11/17/17 11/17/17 History Gabapentin [Neurontin] 300 mg PO Q8HR 11/17/17 11/17/17 11/17/17 History Mv-Mn/Folic Acid/Calcium/Vit K 1 each PO DAILY 11/17/17 11/17/17 11/17/17 History [Women's 50 Plus Daily Formula] Pramipexole [Mirapex] 0.125 mg PO QPM 11/17/17 11/17/17 11/17/17 History Latanoprost 0.005% [Xalatan 0.005%] 1 drops HS 11/18/17 11/18/17 11/17/17 History cycloSPORINE [Restasis] 1 drop 11/18/17 11/18/17 15:16 History Active Meds: Active Medications Albuterol (Proventil) 2.5 mg IH Q4HRT PRN PRN Reason: Shortness Of Breath Last Admin: 11/18/17 09:57 Dose: 2.5 mg Albuterol/Ipratropium (Duoneb *Not For Prn Use*) 1 ampul IH Q4HRT [facility] Last Admin: 11/18/17 16:35 Dose: Not Given Amlodipine Besylate (Norvasc) 10 mg PO DAILY [facility] Last Admin: 11/18/17 11:00 Dose: Not Given Atorvastatin Calcium (Lipitor) 40 mg PO QDAY [facility] Last Admin: 11/18/17 12:08 Dose: 40 mg Betamethasone Dipropionate (Diprosone) 1 applic TP BID [facility] Last Admin: 11/18/17 12:08 Dose: 1 applic Calcium/Vitamin D (Oysco D 500 Mg-200 Unit) 1 each PO BID [facility] Last Admin: 11/18/17 12:08 Dose: 1 each Enoxaparin Sodium (Lovenox) 120 mg 1 mg/kg (120 mg) SUB-Q Q12H [facility] Last Admin: 11/18/17 15:19 Dose: 120 mg Famotidine (Pepcid) 20 mg PO DAILY [facility] Last Admin: 11/18/17 12:08 Dose: 20 mg Gabapentin (Neurontin) 300 mg PO Q8HR [facility] Last Admin: 11/18/17 15:20 Dose: 300 mg Levothyroxine Sodium (Synthroid) 112 mcg PO QAM@0600 [facility] Last Admin: 11/18/17 07:44 Dose: 112 mcg Lisinopril (Zestril) 40 mg PO QDAY [facility] Last Admin: 11/18/17 15:20 Dose: 40 mg Miscellaneous Medication (Methotrexate Sodium/Pf [Methotrexate 50 Mg/2 Ml Vial] ) 25 mg PO 1XW [facility] Pramipexole Dihydrochloride (Mirapex) 0.125 mg PO QPM [facility] Prednisone (Deltasone) 5 mg PO QDAY [facility] Last Admin: 11/18/17 12:08 Dose: 5 mg Review of Systems Constitutional: fatigue, weakness, no fever, no chills, no sweats, no night sweats Cardiovascular: palpitations, edema, lightheadedness, shortness of breath, dyspnea on exertion, no chest pain, no orthopnea, no syncope Respiratory: no cough, no cough with sputum, no hemoptysis, no wheezing Gastrointestinal: no abdominal pain, no nausea, no vomiting Integumentary: no rash Neurological: no head injury, no transient paralysis, no paralysis, no weakness , no parathesias, no numbness, no vertigo, no headaches Hematologic/Lymphatic: no easy bruising, no easy bleeding, no lymphadenopathy, no lymphedema, no thrombophilia Physical Examination Vital signs: Vital Signs Temp Pulse Resp BP Pulse Ox 97.5 F L 118 H 22 167/76 81 L 11/17/17 18:33 11/17/17 18:33 11/17/17 18:33 11/17/17 18:33 11/17/17 18:33 General appearance: no acute distress, alert, other (morbidly obese) Eyes: non-icteric ENT: oropharynx moist, other (Mallampati 3. Perioral cyanosis with patient OFF oxygen) Effort: normal Ascultation: Bilateral: rales (bilateral inspiratory crackles lower half of both pulmonary kowalski. No wheezing) Percussion: Bilateral: not dull Cardiovascular: regular rate and rhythm, other (no murmur) Gastrointestinal: normoactive bowel sounds, non-tender, non-distended Integumentary: normal Extremities: cyanosis, other (trace pretibial edema. Clubbing present) normal mental status, non-focal exam, CN II-XII normal mood appropriate, affect normal Results - Laboratory Findings CBC and BMP: 11/17/17 20:21 11/17/17 20:21 PT/INR, D-dimer PT 13.8 Sec. (12.2-14.9) 11/17/17 20:21 INR 1.01 (0.87-1.13) 11/17/17 20:21 D-Dimer > 33386 ng/mlDDU (0-234) H 11/17/17 20:21 Abnormal lab findings: Abnormal Labs 11/17/17 11/17/17 11/17/17 20:21 20:21 20:21 WBC 13.5 H RBC 5.22 H Hgb 16.1 H Hct 50.5 H RDW 16.9 H Lymph % (Auto) 9.0 L [place] # 1.0 H Seg Neutrophils % 80.3 H Seg Neutrophils # 10.8 H D-Dimer > 17574 H Glucose 103 H Albumin 3.5 L Free T4 11/17/17 20:21 WBC RBC Hgb Hct RDW Lymph % (Auto) [place] # Seg Neutrophils % Seg Neutrophils # D-Dimer Glucose Albumin Free T4 1.52 H - Diagnostic Findings Chest x-ray: report reviewed, image reviewed CT scan - chest: report reviewed, image reviewed Assessment and Plan Bilateral pulmonary embolism DVT Interstitial lung disease. Suggestive of rheumatoid lung in the context of prior RA. Also prior history of methotrexate treatment Pulmonary hypertension. Most likely chronic since his unlikely patient will survive acute cor pulmonale secondary to PE, with pressures > 40 mmHg. Also no large right ventricular strain on echocardiogram. Most likely either PAH or CTEPH /chronic Thrombo-embolic pulmonary hypertension. Also chronically hypoxemic so it could be also reactive to this. Recommendations Albuterol 2.5 milligram nebulizations every 4-6 hours with or without ipratropium if chest congestion noted Discussed with patient oxygen use in detail. Oxygen support via nasal cannula or mask to maintain oximetry over 92% Continue anticoagulation for pulmonary embolism CPAP with oxygen nighttime Regarding her ILD, the patient will need further reevaluation. Specifically, whether to continue with methotrexate (which can cause ILD) versus biological agent and performing additional biopsy evaluation is necessary for her ILD. Being realistic, bronchoscopy is not good for this ( drug induce vs CTD ILD ) and the patient might be at the point where open lung biopsy may be difficult to perform, because of medical risk She will also need evaluation for pulmonary hypertension/PAH. I will recommend to continue with aggressive 24/7 oxygen support and consider at some point R/L cardiac catheterization. It may be difficult to separate chronic PAH from CTPEH , but if right heart catheterization is supportive of PAH Dx, the patient might be a candidate for Riociguat therapy HIV testing for PHT VQ scan for CTEPH Findings were discussed with the patient and her in detail. All questions answered. Thanks
[2017-11-19] MEDS: DUONEB *Not for PRN Use IH SCH ×7 (01:21→20:05)
[2017-11-19] MEDS: LOVENOX SUB-Q SCH ×2 (02:00→13:45)
[2017-11-19] MEDS ORDERED: TYLENOL PO ONE (02:21)
[2017-11-19] MEDS: SYNTHROID PO SCH (05:20)
[2017-11-19] MEDS: NEURONTIN PO SCH ×3 (05:20→22:43)
[2017-11-19] MEDS: OYSCO D 500 MG-200 UNIT PO SCH ×2 (10:08→22:35)
[2017-11-19] MEDS: PEPCID PO SCH (10:08)
[2017-11-19] MEDS: DELTASONE PO SCH (10:08)
[2017-11-19] MEDS: DIPROSONE TP SCH (10:11)
[2017-11-19] MEDS: NORVASC PO SCH (10:16)
[2017-11-19] MEDS: ZESTRIL PO SCH (10:17)
--- NOTE | 2017-11-19 10:20 | Progress Note ---
<ZARIA LORD - Last Filed: 11/19/17 13:18> Assessment and Plan Assessment and plan: 72-year-old female with medical history significant for interstitial lung disease, rheumatoid arthritis, fibromyalgia, glaucoma, sleep apnea presented to the ED complaining of shortness of breath, hyperventilating for the last 2-3 months Large bilateral PE - She is on therapeutic Lovenox - Vascular Surgery following, doesn't recommend catheter directed thrombolysis - Echo showed evidence of left ventricle diastolic dysfunction and pulmonary hypertension with pressures at 72 mmHg, EV 50-55% -Pulm following recommend heart cath to further evaluate Pulmonary HTN- Cardiology consulted Interstitial lung disease Chronic Pulmonary following Rheumatoid arthritis Chronic, continue home medications Sleep apnea Continue CPAP CAD - continue home meds DVT Venous US showed ACUTE DVT NOTED IN RT. PTV AND LT. SOLEAL VEIN CLOT NOTED TO BE EXTENDING INTO LT PERONEAL VEINS Pt on Lovenox History Interval history: Pt was seen and examined. Complains only of SOB with exertion. Denies CH, [place]. Hospitalist Physical - Constitutional Vitals: Temp Pulse Resp BP Pulse Ox 97.7 F 81 20 122/64 92 11/19/17 09:41 11/19/17 10:17 11/19/17 09:41 11/19/17 10:17 11/19/17 09:41 General appearance: Present: no acute distress, well-nourished - EENT Eyes: Present: PERRL, EOM intact ENT: hearing intact, clear oral mucosa - Neck Neck: Present: supple, normal ROM - Respiratory Respiratory effort: normal Respiratory: bilateral: diminished - Cardiovascular Rhythm: regular Heart Sounds: Present: S1 & S2 - Extremities Extremities: no ischemia, No edema - Abdominal General gastrointestinal: soft, non-tender - Integumentary Integumentary: Present: clear, warm, dry - Psychiatric Psychiatric: appropriate mood/affect, cooperative - Neurologic Neurologic: CNII-XII intact, moves all extremities - Allied Health Allied health notes reviewed: nursing Results - Labs CBC & Chem 7: 11/17/17 20:21 11/17/17 20:21 Labs: Laboratory Last Values WBC 13.5 K/mm3 (4.5-11.0) H 11/17/17 20:21 RBC 5.22 M/mm3 (3.65-5.03) H 11/17/17 20:21 Hgb 16.1 gm/dl (10.1-14.3) H 11/17/17 20:21 Hct 50.5 % (30.3-42.9) H 11/17/17 20:21 MCV 97 fl (79-97) 11/17/17 20:21 MCH 31 pg (28-32) 11/17/17 20:21 MCHC 32 % (30-34) 11/17/17 20:21 RDW 16.9 % (13.2-15.2) H 11/17/17 20:21 Plt Count 260 K/mm3 (140-440) 11/17/17 20:21 Lymph % (Auto) 9.0 % (13.4-35.0) L 11/17/17 20:21 [place] % (Auto) 7.3 % (0.0-7.3) 11/17/17 20:21 Eos % (Auto) 3.0 % (0.0-4.3) 11/17/17 20:21 Baso % (Auto) 0.4 % (0.0-1.8) 11/17/17 20:21 Lymph # 1.2 K/mm3 (1.2-5.4) 11/17/17 20:21 [place] # 1.0 K/mm3 (0.0-0.8) H 11/17/17 20:21 Eos # 0.4 K/mm3 (0.0-0.4) 11/17/17 20:21 Baso # 0.1 K/mm3 (0.0-0.1) 11/17/17 20: Seg Neutrophils % 80.3 % (40.0-70.0) H 11/17/17 20:21 Seg Neutrophils # 10.8 K/mm3 (1.8-7.7) H 11/17/17 20:21 PT 13.8 Sec. (12.2-14.9) 11/17/17 20:21 INR 1.01 (0.87-1.13) 11/17/17 20:21 APTT 24.5 Sec. (24.2-36.6) 11/17/17 20:21 D-Dimer > 61030 ng/mlDDU (0-234) H 11/17/17 20:21 Sodium 141 mmol/L (137-145) 11/17/17 20:21 Potassium 4.8 mmol/L (3.6-5.0) 11/17/17 20:21 Chloride 103.0 mmol/L (98-107) 11/17/17 20:21 Carbon Dioxide 22 mmol/L (22-30) 11/17/17 20:21 Anion Gap 21 mmol/L 11/17/17 20:21 BUN 15 mg/dL (7-17) 11/17/17 20:21 Creatinine 0.8 mg/dL (0.7-1.2) 11/17/17 20:21 Estimated GFR > 60 ml/min 11/17/17 20:21 BUN/Creatinine Ratio 19 % 11/17/17 20:21 Glucose 103 mg/dL (65-100) H 11/17/17 20:21 Calcium 9.2 mg/dL (8.4-10.2) 11/17/17 20:21 Magnesium 2.00 mg/dL (1.7-2.3) 11/17/17 20:21 Total Bilirubin 0.60 mg/dL (0.1-1.2) 11/17/17 20:21 AST 30 units/L (5-40) 11/17/17 20:21 ALT 28 units/L (7-56) 11/17/17 20:21 Alkaline Phosphatase 89 units/L (35-129) 11/17/17 20:21 Troponin T < 0.010 ng/mL (0.00-0.029) 11/17/17 22:55 NT-Pro-B Natriuret Pep 347.7 pg/mL (0-900) 11/17/17 20:21 Total Protein 7.4 g/dL (6.3-8.2) 11/17/17 20:21 Albumin 3.5 g/dL (3.9-5) L 11/17/17 20:21 Albumin/Globulin Ratio 0.9 % 11/17/17 20:21 TSH 3.460 mlU/mL (0.270-4.200) 11/17/17 20:21 Free T4 1.52 ng/dL (0.76-1.46) H 11/17/17 20:21 <JERRY YAP M - Last Filed: 11/19/17 17:27> Hospitalist Physical - Constitutional Vitals: Temp Pulse Resp BP Pulse Ox 97.3 F L 80 20 134/58 93 11/19/17 13:44 11/19/17 16:22 11/19/17 16:22 11/19/17 13:44 11/19/17 14:30 Results - Labs CBC & Chem 7: 11/17/17 20:21 11/19/17 11:00 Labs: Laboratory Last Values WBC 13.5 K/mm3 (4.5-11.0) H 11/17/17 20:21 RBC 5.22 M/mm3 (3.65-5.03) H 11/17/17 20:21 Hgb 16.1 gm/dl (10.1-14.3) H 11/17/17 20:21 Hct 50.5 % (30.3-42.9) H 11/17/17 20:21 MCV 97 fl (79-97) 11/17/17 20:21 MCH 31 pg (28-32) 11/17/17 20:21 MCHC 32 % (30-34) 11/17/17 20:21 RDW 16.9 % (13.2-15.2) H 11/17/17 20:21 Plt Count 260 K/mm3 (140-440) 11/17/17 20:21 Lymph % (Auto) 9.0 % (13.4-35.0) L 11/17/17 20:21 [place] % (Auto) 7.3 % (0.0-7.3) 11/17/17 20:21 Eos % (Auto) 3.0 % (0.0-4.3) 11/17/17 20:21 Baso % (Auto) 0.4 % (0.0-1.8) 11/17/17 20:21 Lymph # 1.2 K/mm3 (1.2-5.4) 11/17/17 20:21 [place] # 1.0 K/mm3 (0.0-0.8) H 11/17/17 20:21 Eos # 0.4 K/mm3 (0.0-0.4) 11/17/17 20:21 Baso # 0.1 K/mm3 (0.0-0.1) 11/17/17 20:21 Seg Neutrophils % 80.3 % (40.0-70.0) H 11/17/17 20:21 Seg Neutrophils # 10.8 K/mm3 (1.8-7.7) H 11/17/17 20:21 PT 13.8 Sec. (12.2-14.9) 11/17/17 20:21 INR 1.01 (0.87-1.13) 11/17/17 20:21 APTT 24.5 Sec. (24.2-36.6) 11/17/17 20:21 D-Dimer > 05496 ng/mlDDU (0-234) H 11/17/17 20:21 Sodium 138 mmol/L (137-145) 11/19/17 11:00 Potassium 4.4 mmol/L (3.6-5.0) 11/19/17 11:00 Chloride 102.0 mmol/L (98-107) 11/19/17 11:00 Carbon Dioxide 19 mmol/L (22-30) L 11/19/17 11:00 Anion Gap 21 mmol/L 11/19/17 11:00 BUN 8 mg/dL (7-17) 11/19/17 11:00 Creatinine 0.8 mg/dL (0.7-1.2) 11/19/17 11:00 Estimated GFR > 60 ml/min 11/19/17 11:00 BUN/Creatinine Ratio 10 % 11/19/17 11:00 Glucose 193 mg/dL (65-100) H 11/19/17 11:00 Calcium 8.7 mg/dL (8.4-10.2) 11/19/17 11:00 Magnesium 2.00 mg/dL (1.7-2.3) 11/17/17 20:21 Total Bilirubin 0.60 mg/dL (0.1-1.2) 11/17/17 20:21 AST 30 units/L (5-40) 11/17/17 20:21 ALT 28 units/L (7-56) 11/17/17 20:21 Alkaline Phosphatase 89 units/L (35-129) 11/17/17 20:21 Troponin T < 0.010 ng/mL (0.00-0.029) 11/17/17 22:55 NT-Pro-B Natriuret Pep 347.7 pg/mL (0-900) 11/17/17 20:21 Total Protein 7.4 g/dL (6.3-8.2) 11/17/17 20:21 Albumin 3.5 g/dL (3.9-5) L 11/17/17 20:21 Albumin/Globulin Ratio 0.9 % 11/17/17 20:21 TSH 3.460 mlU/mL (0.270-4.200) 11/17/17 20:21 Free T4 1.52 ng/dL (0.76-1.46) H 11/17/17 20:21 Thyroxine (T4) 10.0 ug/dL (4.0-12.0) 11/19/17 11:00
--- NOTE | 2017-11-19 11:38 | Event Note ---
Date: 11/19/17 Pt awake and alert. Denies new complaint at present. Prelimb venous report: BLE VENOUS DUPLEX COMPLETED. VAS LAB PRELIMINARY REPORT; ACUTE DVT NOTED IN RT. PTV AND LT. SOLEAL VEIN CLOT NOTED TO BE EXTENDING INTO LT PERONEAL VEINS. PHYSICIANS REPORT TO FOLLOW...(ROSEANNE) Initialized on 11/18/17 11:34 Pt has pre-existing interstitial lung dz, now with acute dvt and PE. Her symptoms have been progressively worse over the last 2-3 months. This resulted in decreased activity which may have contributed to the development of the dvt/ pe. She has had an approximate 18lb wt loss over the last month (278 to 260lbs) , though she states she has been trying to lose wt. She denies bleeding with urination or BM. She had an isolated episode of coughing up blood several months ago, and nothing since. Pt presently on Lovenox. Do not recommend thrombolytic therapy as it likely offers little benefit (with significant risk of bleeding). Pt will need to be converted to an oral anticoagulant (would consider Eliquis). Recommend d/c planning for Home Eliquis. Will see again as needed.
[2017-11-19 13:38] LABS: BUN/Creatinine Ratio 10; Blood Urea Nitrogen 8 mg/dL (7-17); Calcium 8.7 mg/dL (8.4-10.2); Hemolysis Index 40
--- NOTE | 2017-11-19 15:21 | Progress Note ---
Assessment and Plan Bilateral pulmonary embolism. Clinically better, o bleeding DVT Hypoxemic respiratory failure. Better on oxygen Interstitial lung disease. Suggestive of rheumatoid lung in the context of prior RA. Also prior history of methotrexate treatment Pulmonary hypertension. Most likely chronic since his unlikely patient will survive acute cor pulmonale secondary to PE, with pressures > 40 mmHg. Also no large right ventricular strain on echocardiogram. Most likely either PAH or CTEPH /chronic Thrombo-embolic pulmonary hypertension. Also chronically hypoxemic so it could be also reactive to this. Recommendations Continue nebs Continue current oxygen support Agree no clear advantage to use thrombolytics Continue anticoagulation for pulmonary embolism. Likely lifelong [place] CPAP with oxygen nighttime Regarding her ILD, the patient will need further reevaluation. Specifically, whether to continue with methotrexate (which can cause ILD) versus biological agent and performing additional biopsy evaluation is necessary for her ILD. Being realistic, bronchoscopy is not good for this ( drug induce vs CTD ILD ) and the patient might be at the point where open lung biopsy may be difficult to perform, because of medical risk Needs further evaluation, f/u for pulmonary hypertension/PAH: - recommend 24/7 oxygen support - at some point R/L cardiac catheterization. It may be difficult to separate chronic PAH from CTPEH, but if right heart catheterization is supportive of PAH Dx, the patient might be a candidate for Riociguat therapy - HIV testing for PHT - baseline VQ scan for CTEPH.This can be done OPD also Findings were discussed with the patient and her in detail. All questions answered. Subjective Date of service: 11/19/17 Interval history: Feeles better today.No chest pain or hemoptysis Objective Vital Signs - 12hr 11/19/17 11/19/17 11/19/17 04:42 08:34 09:41 Temperature 97.5 F L 97.7 F Pulse Rate 92 H 81 Respiratory 20 24 20 Rate Blood Pressure 125/67 122/64 O2 Sat by Pulse 89 94 92 Oximetry 11/19/17 11/19/17 11/19/17 10:16 10:17 13:44 Temperature 97.3 F L Pulse Rate 81 81 88 Respiratory 20 Rate Blood Pressure 122/64 122/64 134/58 O2 Sat by Pulse 92 Oximetry Constitutional: no acute distress, alert, other (morbidly obese) Eyes: non-icteric ENT: oropharynx moist, other (Mallampati 3. ) Effort: normal Ascultation: Bilateral: rales (bilateral inspiratory crackles lower half of both pulmonary kowalski. No wheezing) Percussion: Bilateral: not dull Cardiovascular: regular rate and rhythm, other (no murmur) Gastrointestinal: normoactive bowel sounds, non-tender, non-distended Integumentary: normal Extremities: cyanosis, other (trace pretibial edema. Clubbing present) Neurologic: normal mental status, non-focal exam, CN II-XII normal Psychiatric: mood appropriate, affect normal CBC and BMP: 11/17/17 20:21 11/19/17 11:00 ABG, PT/INR, D-dimer: PT/INR, D-dimer PT 13.8 Sec. (12.2-14.9) 11/17/17 20:21 INR 1.01 (0.87-1.13) 11/17/17 20:21 D-Dimer > 13351 ng/mlDDU (0-234) H 11/17/17 20:21 Abnormal lab findings: Abnormal Labs 11/17/17 11/17/17 11/17/17 20:21 20:21 20:21 WBC 13.5 H RBC 5.22 H Hgb 16.1 H Hct 50.5 H RDW 16.9 H Lymph % (Auto) 9.0 L [place] # 1.0 H Seg Neutrophils % 80.3 H Seg Neutrophils # 10.8 H D-Dimer > 49321 H Carbon Dioxide Glucose 103 H Albumin 3.5 L Free T4 11/17/17 11/19/17 20:21 11:00 WBC RBC Hgb Hct RDW Lymph % (Auto) [place] # Seg Neutrophils % Seg Neutrophils # D-Dimer Carbon Dioxide 19 L Glucose 193 H Albumin Free T4 1.52 H
[2017-11-19] MEDS: CYCLOSPORINE OU SCH (17:20)
[2017-11-19] MEDS: MIRAPEX PO SCH (17:52)
[2017-11-19] MEDS ORDERED: XALATAN 0.005% OU SCH (22:00)
[2017-11-20] MEDS: LOVENOX SUB-Q SCH ×2 (00:45→12:31)
[2017-11-20] MEDS: DUONEB *Not for PRN Use IH SCH ×2 (07:48→14:07)
--- NOTE | 2017-11-20 10:12 | Progress Note ---
Assessment and Plan Assessment and plan: 72-year-old female with medical history significant for interstitial lung disease, rheumatoid arthritis, fibromyalgia, glaucoma, sleep apnea presented to the ED complaining of shortness of breath, hyperventilating for the last 2-3 months Large bilateral PE - She is on therapeutic Lovenox - Vascular Surgery following, doesn't recommend catheter directed thrombolysis - Echo showed evidence of left ventricle diastolic dysfunction and pulmonary hypertension with pressures at 72 mmHg, EV 50-55% -Pulm following recommend heart cath to further evaluate Pulmonary HTN- Cardiology consulted Interstitial lung disease Chronic Pulmonary following Rheumatoid arthritis Chronic, continue home medications Sleep apnea Continue CPAP CAD - continue home meds DVT Venous US showed ACUTE DVT NOTED IN RT. PTV AND LT. SOLEAL VEIN CLOT NOTED TO BE EXTENDING INTO LT PERONEAL VEINS Pt on Lovenox To be DC on [facility] Hospitalist Physical - Constitutional Vitals: Temp Pulse Resp BP Pulse Ox 98.2 F 106 H 20 130/82 91 11/20/17 07:58 11/20/17 07:58 11/20/17 07:58 11/20/17 07:58 11/20/17 07:58 General appearance: Present: no acute distress, well-nourished Results - Labs CBC & Chem 7: 11/17/17 20:21 11/19/17 11:00 Labs: Laboratory Last Values WBC 13.5 K/mm3 (4.5-11.0) H 11/17/17 20:21 RBC 5.22 M/mm3 (3.65-5.03) H 11/17/17 20:21 Hgb 16.1 gm/dl (10.1-14.3) H 11/17/17 20:21 Hct 50.5 % (30.3-42.9) H 11/17/17 20:21 MCV 97 fl (79-97) 11/17/17 20:21 MCH 31 pg (28-32) 11/17/17 20:21 MCHC 32 % (30-34) 11/17/17 20:21 RDW 16.9 % (13.2-15.2) H 11/17/17 20:21 Plt Count 260 K/mm3 (140-440) 11/17/17 20:21 Lymph % (Auto) 9.0 % (13.4-35.0) L 11/17/17 20:21 [place] % (Auto) 7.3 % (0.0-7.3) 11/17/17 20:21 Eos % (Auto) 3.0 % (0.0-4.3) 11/17/17 20:21 Baso % (Auto) 0.4 % (0.0-1.8) 11/17/17 20:21 Lymph # 1.2 K/mm3 (1.2-5.4) 11/17/17 20:21 [place] # 1.0 K/mm3 (0.0-0.8) H 11/17/17 20:21 Eos # 0.4 K/mm3 (0.0-0.4) 11/17/17 20:21 Baso # 0.1 K/mm3 (0.0-0.1) 11/17/17 20:21 Seg Neutrophils % 80.3 % (40.0-70.0) H 11/17/17 20:21 Seg Neutrophils # 10.8 K/mm3 (1.8-7.7) H 11/17/17 20:21 PT 13.8 Sec. (12.2-14.9) 11/17/17 20:21 INR 1.01 (0.87-1.13) 11/17/17 20:21 APTT 24.5 Sec. (24.2-36.6) 11/17/17 20:21 D-Dimer > 35801 ng/mlDDU (0-234) H 11/17/17 20:21 Sodium 138 mmol/L (137-145) 11/19/17 11:00 Potassium 4.4 mmol/L (3.6-5.0) 11/19/17 11:00 Chloride 102.0 mmol/L (98-107) 11/19/17 11:00 Carbon Dioxide 19 mmol/L (22-30) L 11/19/17 11:00 Anion Gap 21 mmol/L 11/19/17 11:00 BUN 8 mg/dL (7-17) 11/19/17 11:00 Creatinine 0.8 mg/dL (0.7-1.2) 11/19/17 11:00 Estimated GFR > 60 ml/min 11/19/17 11:00 BUN/Creatinine Ratio 10 % 11/19/17 11:00 Glucose 193 mg/dL (65-100) H 11/19/17 11:00 Calcium 8.7 mg/dL (8.4-10.2) 11/19/17 11:00 Magnesium 2.00 mg/dL (1.7-2.3) 11/17/17 20:21 Total Bilirubin 0.60 mg/dL (0.1-1.2) 11/17/17 20:21 AST 30 units/L (5-40) 11/17/17 20:21 ALT 28 units/L (7-56) 11/17/17 20:21 Alkaline Phosphatase 89 units/L (35-129) 11/17/17 20:21 Troponin T < 0.010 ng/mL (0.00-0.029) 11/17/17 22:55 NT-Pro-B Natriuret Pep 347.7 pg/mL (0-900) 11/17/17 20:21 Total Protein 7.4 g/dL (6.3-8.2) 11/17/17 20:21 Albumin 3.5 g/dL (3.9-5) L 11/17/17 20:21 Albumin/Globulin Ratio 0.9 % 11/17/17 20:21 TSH 3.460 mlU/mL (0.270-4.200) 11/17/17 20:21 Free T4 1.52 ng/dL (0.76-1.46) H 11/17/17 20:21 Thyroxine (T4) 10.0 ug/dL (4.0-12.0) 11/19/17 11:00
[2017-11-20] MEDS: ZESTRIL PO SCH (10:36)
[2017-11-20] MEDS: DELTASONE PO SCH (10:36)
[2017-11-20] MEDS: PEPCID PO SCH (10:36)
[2017-11-20] MEDS: NEURONTIN PO SCH ×2 (10:36→13:12)
[2017-11-20] MEDS: NORVASC PO SCH (10:36)
[2017-11-20] MEDS: OYSCO D 500 MG-200 UNIT PO SCH (10:37)
[2017-11-20] MEDS: CYCLOSPORINE OU SCH (10:38)
--- NOTE | 2017-11-20 11:02 | Vascular Lab Report ---
LOWER EXTREMITY VENOUS DUPLEX: REASON FOR EXAM: Swelling of the lower extremities. Pulmonary embolism shortness of breath. COMMENTS ON THE RIGHT: Acute deep venous thrombus noted in the right posterior tibial vein. The remaining veins visualized are freely compressible without evidence of internal echogenicity. Spontaneous and phasic flow is present proximally. COMMENTS ON THE LEFT: Acute deep venous thrombus the left peroneal vein which extends into the left soleal muscle veins. The remaining veins visualized are freely compressible without evidence of internal echogenicity. Spontaneous and phasic flow is present proximally. IMPRESSION: Bilateral lower extremity distal acute deep venous thrombus.
--- NOTE | 2017-11-20 11:28 | Consultation ---
History of Present Illness Consult date: 11/20/17 Requesting physician: JERRY YAP Consult reason: other (pulm HTN; possible LHC & RHC for eval of PAH) History of present illness: The pt is a 72 YO female with a past medical history significant for rheumatoid arthritis, ILD, HTN, HLP, BELÉN, pulmonary artery aneurysm, RLS. She is followed in our office by Dr. Ulrich and is also followed by [facility]. She presents to the ER with a c/o shortness of breath and DALAL for the past 2-3 months which became progressively worse over several days [employer]. She denies any chest pain, palpitations, n/v, diaphoresis, dizziness or syncope. Pt called our office with these complaints and was advised to report to the ED for further eval/management. Following admission, pt was diagnosed with bilateral PE and BLE DVT. She underwent echo which showed mild LVH, EF 50-55%, impaired relaxation, LA mildly dilated, mild MR, mild TR, severe pulm HTN with RVSP 72mmHg, no evidence of RV strain. Pt was seen by electro mechanical designer, who did not recommend catheter directed thrombolysis. Cardiology has been consulted for possible left and right heart catheterization for evaluation of PAH. Past History Past Medical History: CAD, hypertension, hyperlipidemia, other (RA, fibromyalgia , glaucoma, sleep apnea) Past Surgical History: No surgical history Social history: full code. denies: smoking, alcohol abuse, prescription drug abuse, IV drug use Family history: no significant family history Medications and Allergies Allergies Allergy/AdvReac Type Severity Reaction Status Date / Time No Known Allergies Allergy Verified 11/18/17 00:55 Home Medications Medication Instructions Recorded Confirmed Last Taken Type Amlodipine Besylate/Benazepril 42 mg PO QAM 08/07/15 11/17/17 11/17/17 History [amLODIPine-Benazepril 10/40 mg] AtorvaSTATin [Lipitor] 40 mg PO QDAY 08/07/15 11/17/17 11/17/17 History Levothyroxine [Synthroid] 112 mcg PO QAM 08/07/15 11/17/17 11/17/17 History Methotrexate Sodium/Pf 25 mg PO 1XW 08/07/15 11/17/17 11/17/17 History [Methotrexate 50 mg/2 ml Vial] Prednisone [predniSONE] 5 mg PO QDAY 08/07/15 11/17/17 11/17/17 History Benazepril HCl 40 mg PO DAILY 11/17/17 11/17/17 11/17/17 History Betamethasone Dipropionate 1 applicatio TP BID 11/17/17 11/17/17 11/17/17 History [Betamethasone Dipropionate 0.05% Cream] Calcium Carbonate/Vitamin D3 1 each PO BID 11/17/17 11/17/17 11/17/17 History [Calcium 500-Vit D3 600 Tablet] Famotidine [Pepcid] 20 mg PO DAILY 11/17/17 11/17/17 11/17/17 History Folic Acid 20 mg PO QDAY 11/17/17 11/17/17 11/17/17 History Gabapentin [Neurontin] 300 mg PO Q8HR 11/17/17 11/17/17 11/17/17 History Mv-Mn/Folic Acid/Calcium/Vit K 1 each PO DAILY 11/17/17 11/17/17 11/17/17 History [Women's 50 Plus Daily Formula] Pramipexole [Mirapex] 0.125 mg PO QPM 11/17/17 11/17/17 11/17/17 History Latanoprost 0.005% [Xalatan 0.005%] 1 drops HS 11/18/17 11/18/17 11/17/17 History cycloSPORINE [Restasis] 1 drop OU BID 11/18/17 11/19/17 11/18/17 15:16 History Active Meds: Active Medications Albuterol (Proventil) 2.5 mg IH Q4HRT PRN PRN Reason: Shortness Of Breath Last Admin: 11/18/17 09:57 Dose: 2.5 mg Albuterol/Ipratropium (Duoneb *Not For Prn Use*) 1 ampul IH TIDRT [facility] Last Admin: 11/20/17 07:48 Dose: 1 ampul Amlodipine Besylate (Norvasc) 10 mg PO DAILY [facility] Last Admin: 11/20/17 10:36 Dose: 10 mg Atorvastatin Calcium (Lipitor) 40 mg PO QDAY [facility] Last Admin: 11/20/17 10:36 Dose: 40 mg Betamethasone Dipropionate (Diprosone) 1 applic TP BID [facility] Last Admin: 11/19/17 10:11 Dose: 1 applic Calcium/Vitamin D ([place]ys[place] D 500 Mg-200 Unit) 1 each PO BID [facility] Last Admin: 11/20/17 10:37 Dose: 1 each Enoxaparin Sodium (Lovenox) 120 mg 1 mg/kg (120 mg) SUB-Q Q12H [facility] Last Admin: 11/20/17 00:45 Dose: 120 mg Famotidine (Pepcid) 20 mg PO DAILY [facility] Last Admin: 11/20/17 10:36 Dose: 20 mg Gabapentin (Neurontin) 900 mg PO Q8HR [facility] Last Admin: 11/20/17 10:36 Dose: 900 mg Latanoprost (Xalatan 0.005%) 1 drops OU HS [facility] Levothyroxine Sodium (Synthroid) 112 mcg PO QAM@0600 [facility] Last Admin: 11/19/17 05:20 Dose: 112 mcg Lisinopril (Zestril) 40 mg PO QDAY [facility] Last Admin: 11/20/17 10:36 Dose: 40 mg Methotrexate (Methotrexate) 25 mg IM Sa [facility] Miscellaneous Medication (Cyclosporine [Restasis]) 1 drop OU BID [facility] Last Admin: 11/20/17 10:38 Dose: 1 drop Pramipexole Dihydrochloride (Mirapex) 0.125 mg PO QPM [facility] Last Admin: 11/19/17 17:52 Dose: 0.125 mg Prednisone (Deltasone) 5 mg PO QDAY [facility] Last Admin: 11/20/17 10:36 Dose: 5 mg Review of Systems Constitutional: no weight loss, no weight gain, no fever, no chills, no sweats Ears, nose, mouth and throat: no ear pain, no nose pain, no sinus pressure, no sinus pain Cardiovascular: shortness of breath, dyspnea on exertion, no chest pain, no orthopnea, no palpitations, no rapid/irregular heart beat, no edema, no syncope , no lightheadedness Respiratory: shortness of breath, dyspnea on exertion, no congestion, no wheezing, no pain on inspiration Gastrointestinal: no abdominal pain, no nausea, no vomiting, no diarrhea, no constipation, no change in bowel habits Genitourinary Female: no pelvic pain, no flank pain, no menorrhagia, no dysuria , no urinary frequency, no urgency Musculoskeletal: no neck stiffness, no neck pain, no shooting arm pain, no arm numbness/tingling, no low back pain, no shooting leg pain, no leg numbness/ tingling, no redness of joints Integumentary: no rash, no pruritis, no redness, no sores, no wounds Neurological: no head injury, no transient paralysis, no paralysis, no weakness , no parathesias, no numbness, no tingling, no seizures Psychiatric: no anxiety Endocrine: no cold intolerance, no heat intolerance Hematologic/Lymphatic: no easy bruising, no easy bleeding Allergic/Immunologic: no urticaria, no wheezing Physical Examination Vital Signs Temp Pulse Resp BP Pulse Ox 97.5 F L 118 H 22 167/76 81 L 11/17/17 18:33 11/17/17 18:33 11/17/17 18:33 11/17/17 18:33 11/17/17 18:33 General appearance: no acute distress HEENT: Positive: PERRL, Normocephaly, Mucus Membranes Moist Neck: Positive: neck supple, trachea midline Cardiac: Positive: Reg Rate and Rhythm, S1/S2 Lungs: Positive: Rales (fibrotic) Neuro: Positive: Grossly Intact Abdomen: Positive: Soft. Negative: Tender Skin: Positive: Clear. Negative: Rash, Wound Musculoskeletal: No Fluid Collection, No Pain, Normal Range of Motion Extremities: Absent: edema Results 11/17/17 20:21 11/19/17 11:00 Comprehensive Metabolic Panel 11/19/17 Range/Units 11:00 Sodium 138 (137-145) mmol/L Potassium 4.4 (3.6-5.0) mmol/L Chloride 102.0 (98-107) mmol/L Carbon Dioxide 19 L (22-30) mmol/L BUN 8 (7-17) mg/dL Creatinine 0.8 (0.7-1.2) mg/dL Glucose 193 H (65-100) mg/dL Calcium 8.7 (8.4-10.2) mg/dL - Imaging and Cardiology Echo: report reviewed EKG: report reviewed, image reviewed EKG interpretations - Telemetry EKG Rhythm: Sinus Rhythm - EKG Sinus rhythms and dysrhythmias: sinus tachycardia Assessment and Plan Assessment: Bilateral PE Bilateral LE DVT Rheumatoid arthritis Severe pulmonary HTN ILD HTN HLP BEL[facility]N - compliant with CPAP H/o pulmonary artery aneurysm RLS Plan: Per pulmonary, recommend R/L cardiac catheterization at some point for further eval and management of PAH. Given presence of acute PE, do not recommend cardiac catheterization for further evaluation of PAH at this time. Recommend continuation of systemic anticoagulation for treatment of PE (agree with Vascular's recommendation of Bart) for at least 6 months time and then can consider RHC as OP. Currently stable cardiac status. Nothing further to add from cardiac perspective at this time. Will follow on as needed basis. Pt is to follow up with her primary pulmonary team at [facility]. Follow up in our [place] office with Dr. Ulrich on 11/26/2017 @ 10:30AM. The patient has been seen in conjunction with Dr. Wasserman who agrees with the assessment and plan of care.
--- NOTE | 2017-11-20 12:39 | Progress Note ---
Assessment and Plan Bilateral pulmonary embolism. Clinically better, hemodynamically stable. NO bleeding. Onto correlation DVT. On treatment Hypoxemic respiratory failure. Stabilized on oxygen Interstitial lung disease. Suggestive of rheumatoid lung in the context of prior RA. Also prior history of methotrexate treatment. Pulmonary hypertension. Possibly chronic, it is group 1 PAH, chronic thromboembolic pulmonary hypertension or group III/chronic hypoxemia/ILD related . Recommendations Continue current oxygen support Continue anticoagulation for pulmonary embolism. Likely lifelong [place] CPAP with oxygen nighttime Regarding her ILD, the patient will need further reevaluation. 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 We will recommend this to be done on the next 6 weeks following the acute phase of the pulmonary embolism episode Check pending labs Findings were discussed with the patient and her in detail. I will happy to follow this patient, butshe plans to go to [place] for pulmonary follow- up. Therefore, I will sign off at this point. Please feel free to reconsult if necessary Thank you Subjective Date of service: 11/20/17 Interval history: Complaints of some soft stools, diarrhea this morning. Breathing feels better, currently on oxygen. No bleeding reported no hemoptysis Objective Vital Signs - 12hr 11/20/17 11/20/17 11/20/17 04:00 04:27 07:40 Temperature 98.6 F Pulse Rate 89 Pulse Rate [ 102 H Bilateral] Respiratory 18 Rate Respiratory 30 H Rate [Bilateral ] Blood Pressure 114/57 O2 Sat by Pulse 91 Oximetry 11/20/17 11/20/17 11/20/17 07:52 07:53 07:58 Temperature 98.2 F Pulse Rate 106 H Pulse Rate [ 101 H Bilateral] Respiratory 20 Rate Respiratory 24 Rate [Bilateral ] Blood Pressure 130/82 O2 Sat by Pulse 92 91 Oximetry 11/20/17 10:36 Temperature Pulse Rate 106 H Pulse Rate [ Bilateral] Respiratory Rate Respiratory Rate [Bilateral ] Blood Pressure 130/82 O2 Sat by Pulse Oximetry Constitutional: no acute distress, alert, other (morbidly obese) Eyes: non-icteric ENT: oropharynx moist Neck: no JVD Effort: normal Ascultation: Bilateral: rales (bilateral inspiratory crackles lower half of both pulmonary kowalski. ) Percussion: Bilateral: not dull Cardiovascular: regular rate and rhythm, other (no murmur) Gastrointestinal: normoactive bowel sounds, non-tender, non-distended Integumentary: normal Extremities: cyanosis, other (Clubbing present) Neurologic: normal mental status, non-focal exam, CN II-XII normal Psychiatric: mood appropriate, affect normal CBC and BMP: 11/17/17 20:21 11/19/17 11:00 ABG, PT/INR, D-dimer: PT/INR, D-dimer PT 13.8 Sec. (12.2-14.9) 11/17/17 20:21 INR 1.01 (0.87-1.13) 11/17/17 20:21 D-Dimer > 15617 ng/mlDDU (0-234) H 11/17/17 20:21 Abnormal lab findings: Abnormal Labs 11/17/17 11/17/17 11/17/17 20:21 20:21 20:21 WBC 13.5 H RBC 5.22 H Hgb 16.1 H Hct 50.5 H RDW 16.9 H Lymph % (Auto) 9.0 L [place] # 1.0 H Seg Neutrophils % 80.3 H Seg Neutrophils # 10.8 H D-Dimer > 90559 H Carbon Dioxide Glucose 103 H Albumin 3.5 L Free T4 11/17/17 11/19/17 20:21 11:00 WBC RBC Hgb Hct RDW Lymph % (Auto) [place] # Seg Neutrophils % Seg Neutrophils # D-Dimer Carbon Dioxide 19 L Glucose 193 H Albumin Free T4 1.52 H
--- NOTE | 2017-11-20 14:33 | Discharge Summary ---
Providers - Providers Date of Admission: 11/18/17 00:54 Attending physician: JERRY YAP MD 11/18/17 04:37 Consult to Physician [CONS] Routine Consulting Provider: ANNAMARIA CONTI Reason For Exam: large PE Place consult to:: Vascular surgery Notified:: yes Phone number called:: [phone] If yes, spoke with:: cami Henao called:: 08:06 Comment:: [place] 11/18/17 04:38 Consult to Physician [CONS] Routine Consulting Provider: LESA MALAGON Reason For Exam: ILD Place consult to:: answering service Notified:: yes Phone number called:: [phone] If yes, spoke with:: darion Henao called:: 08:09 Comment:: [place] 11/18/17 11:47 Physical Therapy Evaluation and Treat [CONS] Routine Comment: Reason For Exam: debility Speech Therapy Evaluation and Treat [CONS] Routine Reason For Exam: dysphagia 11/19/17 17:24 Consult to Physician [CONS] Routine Consulting Provider: PK NINO Reason For Exam: for left and r heart cath for eval PAH Place consult to:: Notified:: Phone number called:: [phone] Was contact made?: Yes If yes, spoke with:: THELMA Henao called:: 18:11 Comment:: BERE Primary care physician: FREDDIE HOUSER Hospitalization Condition: Good Hospital course: 72-year-old female with medical history significant for interstitial lung disease, rheumatoid arthritis, fibromyalgia, glaucoma, sleep apnea presented to the ED complaining of shortness of breath, she was found to have large bilateral PE and bilateral DVT. She was started on subcutaneous anticoagulation. She received pulmonology consult and vascular consults who both recommended continued anticoagulation. 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 She was therefore discharged on oral anticoagulation Discharge diagnoses Large bilateral PE Bilateral DVT Interstitial lung disease Rheumatoid arthritis Obstructive sleep apnea Acute on chronic hypoxic respiratory failure Coronary artery disease Disposition: TO HOME OR SELFCARE Time spent for discharge: 33 minutes Core Measure Documentation - Palliative Care Palliative Care/ Comfort Measures: Not Applicable - Core Measures Any of the following diagnoses?: none Exam - Constitutional Vitals: Temp Pulse Resp BP Pulse Ox 98.2 F 106 H 20 130/82 91 11/20/17 07:58 11/20/17 10:36 11/20/17 07:58 11/20/17 10:36 11/20/17 07:58 General appearance: Present: no acute distress, well-nourished, other (obese) - EENT Eyes: Present: PERRL ENT: hearing intact, clear oral mucosa - Neck Neck: Present: supple, normal ROM - Respiratory Respiratory effort: normal Respiratory: bilateral: other (velcro like sounds in both bases) - Cardiovascular Heart Sounds: Present: S1 & S2. Absent: rub, click - Extremities Extremities: pulses symmetrical, No edema Peripheral Pulses: within normal limits - Abdominal General gastrointestinal: Present: soft, non-tender, non-distended, normal bowel sounds Female genitourinary: Present: normal - Integumentary Integumentary: Present: clear, warm, dry - Musculoskeletal Musculoskeletal: gait normal, strength equal bilaterally - Psychiatric Psychiatric: appropriate mood/affect, intact judgment & insight - Neurologic Neurologic: CNII-XII intact, moves all extremities Plan Follow up with: FREDDIE HOUSER MD [Primary Care Provider] - 3-5 Days Prescriptions: Apixaban [Eliquis] 5 mg PO BID #70 tablet
[2017-11-20 14:47] VITALS: BP 121/60
[2017-11-20] MEDS: MIRAPEX PO SCH (17:47)
[2017-11-22] MEDS ORDERED: METHOTREXATE IM SCH (10:00)
== END 2017-11-20 18:10 | disposition home or self-care (01) | DRG 175 ==
LOC: ED 18:07 → 2B-ACE 11-18 00:54
PROVIDERS: ADMIT Internal Medicine; ATTEND Internal Medicine
PROC: 5A09357 Assistance with Respiratory Ventilation, Less than 24 Consecutive Hours, Continuous Positive Airway Pressure (ICD-10-PCS; principal; 2017-11-18)
PROC: 5A09357 Assistance with Respiratory Ventilation, Less than 24 Consecutive Hours, Continuous Positive Airway Pressure (ICD-10-PCS; 2017-11-19)
DX: I26.99 Other pulmonary embolism without acute cor pulmonale (principal); J96.01 Acute respiratory failure with hypoxia; J84.9 Interstitial pulmonary disease, unspecified; I82.441 Acute embolism and thrombosis of right tibial vein; I82.492 Acute embolism and thrombosis of other specified deep vein of left lower extremity; E78.00 Pure hypercholesterolemia, unspecified; G47.33 Obstructive sleep apnea (adult) (pediatric); I27.20 Pulmonary hypertension, unspecified; M06.9 Rheumatoid arthritis, unspecified; I25.10 Atherosclerotic heart disease of native coronary artery without angina pectoris; H40.9 Unspecified glaucoma; Z79.52 Long term (current) use of systemic steroids; Z79.899 Other long term (current) drug therapy
CPT/HCPCS: 36415; 71046; 71275; 80048; 80053; 83735; 83880; 84436; 84439; 84443; 84484; 85025; 85379; 85610; 85730; 93005; 93010; 93306; 93970; 94640; 94660; 94760; 96360; 96361; A9270-GY; J1650; J7030; J7512; Q9967